=== PATIENT | female | born 1950 | race Caucasian/White ===

== ENCOUNTER → 2017-05-16 | Outpatient (CLI) | payer OTHER | LOC: MMPC 09:00 | PROVIDERS: ATTEND Nurse Practitioner Family | DX: I10 Essential (primary) hypertension (principal); R60.0 Localized edema; R53.83 Other fatigue; Z78.0 Asymptomatic menopausal state | CPT/HCPCS: 99214; G0463 ==

== ENCOUNTER → 2017-05-23 | Outpatient (CLI) | payer OTHER ==
[2017-05-23 08:30] LABS: HEMATOCRIT 51.3 % (37.0-47.0); MEAN CORPUSCULAR HEMOGLOBIN 31.8 PG (27-31); MEAN CORPUSCULAR HGB CONC 33.1 g/dL (33-37); MEAN CORPUSCULAR VOLUME 95.9 FL (81-99); MEAN PLATELET VOLUME 10.7 FL (7.4-12.2); RED BLOOD COUNT 5.35 10^6/uL (4.20-5.40)
[2017-05-23 08:37] LABS: BLOOD UREA NITROGEN 19 mg/dL (7-22); BUN/CREATININE RATIO 23.75 (6-20); CALCIUM 9.5 mg/dL (8.7-10.7); CHOL/HDL RATIO 3.69 RATIO (0-4.0); EST GLOMERULAR FILTRATION > 60 (>60 ml/min/1.73m(2)); HDL CHOLESTEROL 46 mg/dL (40-150); SERUM ALBUMIN 4.1 g/dL (3.5-4.8); SERUM CHOLESTEROL 170 mg/dL (120-200)
[2017-05-23 09:08] LABS: FREE T4 (FREE THYROXINE) 1.62 ng/dL (0.93-1.71)
== END ==
LOC: LAB 08:08
PROVIDERS: ATTEND Nurse Practitioner Family
DX: I10 Essential (primary) hypertension (principal); R53.83 Other fatigue; R60.0 Localized edema; I07.1 Rheumatic tricuspid insufficiency; M47.812 Spondylosis without myelopathy or radiculopathy, cervical region; Z78.0 Asymptomatic menopausal state; F17.200 Nicotine dependence, unspecified, uncomplicated
CPT/HCPCS: 36415; 80053; 80061; 82306; 83540; 83550; 84439; 84443; 85027; 93306